=== PATIENT | female | born 1985 | race Two or more races ===

== ENCOUNTER 2017-03-25 00:22 | Emergency (ER) | payer SELFPAY ==
[~2017-03-25] VITALS: Ht 160 cm; Wt 61.2 kg
[2017-03-25] MEDS ORDERED: VANCOMYCIN 1 GM in IV D5W 250 ML IV ONE (00:30)
--- NOTE | 2017-03-25 00:36 | NUR ---
PT TO ER BED 5. PT BIB SELF C/O "SPIDER BITE" TO R ARM X 2 DAYS AGO. NOTED REDNESS/SWELLING TO R ARM. PT PLACED IN GOWN AND ON MEDICAL OFFICE ASST. VSS/RESP EVEN UNLABORED/NAD NOTED/AFEBRILE/SKIN WARM AND DRY/DENIES N-V-D/AOX4. MD AT BEDSIDE FOR EVAL.
--- NOTE | 2017-03-25 00:37 | NUR ---
18G TO L AC X 1 ATTEMPT USING ASEPTIC TECH, BLOOD CULT X 2 AND BLOOD HANDED OVER TO LAB AT THE BEDSIDE. IV FLUSHES EASILY WITH NS, NO S/S INFILTRATION.
[2017-03-25] MEDS ORDERED: VANCOMYCIN 1 GM VIAL ONE (00:44)
--- NOTE | 2017-03-25 00:48 | NUR ---
URINE SPECIMEN OBTAINED AND SENT TO THE LAB.
[2017-03-25 00:51] LABS: BASOPHILS # (AUTO) 0.1 /CMM (0.0-0.2); BASOPHILS % (AUTO) 0.7 % (0.0-2.0); EOSINOPHILS # (AUTO) 0.3 /CMM (0.0-0.7); EOSINOPHILS % (AUTO) 3.2 % (0.0-6.0); HEMATOCRIT 41 % (33-45); HEMOGLOBIN 14.3 g/dL (11.5-14.8); LYMPHOCYTES # (AUTO) 3.4 /CMM (0.8-4.8); LYMPHOCYTES % (AUTO) 42.5 % (20.0-44.0); MEAN CORPUSCULAR HEMOGLOBIN 30 PG (26.0-33.0); MEAN CORPUSCULAR HGB CONC 35 g/dl (31.0-36.0); MEAN CORPUSCULAR VOLUME 88 fL (82-100); MONOCYTES # (AUTO) 0.5 /CMM (0.1-1.30); MONOCYTES % (AUTO) 6.5 % (2.0-12.0); NEUTROPHILS # (AUTO) 3.8 /CMM (1.8-8.9); NEUTROPHILS % (AUTO) 47.1 % (43.0-81.0); PLATELET COUNT (AUTO) 278 /CMM (150-450); RDW COEFFICIENT OF VARIATION 12.5 (11.5-15.0); RED BLOOD CELL COUNT(AUTO) 4.71 MIL/uL (4.0-5.2); WHITE BLOOD COUNT (AUTO) 8.1 K/uL (4.3-11.0)
[2017-03-25 00:55] LABS: APPEARANCE,URINE CLEAR (CLEAR); BILIRUBIN,URINE NEGATIVE (NEGATIVE); BLOOD, URINE NEGATIVE Ery/uL (NEGATIVE); COLOR,URINE STRAW (YELLOW); KETONES,URINE NEGATIVE (NEGATIVE); LEUKOCYTE ESTERASE ,URINE NEGATIVE (NEGATIVE); NITRITE, URINE NEGATIVE (NEGATIVE); PROTEIN,URINE NEGATIVE (NEGATIVE); UGLUCOSE NEGATIVE (NEGATIVE); UROBILINOGEN,URINE 0.2 EU/dL (0.2)
[2017-03-25] MEDS ORDERED: ONDANSETRON HCL/PF 4 MG/2 ML VIAL ONE (01:08)
[2017-03-25 01:10] LABS: CALCIUM, SERUM 8.6 mg/dL (8.5-10.1); CREATININE 0.7 mg/dL (0.6-1.3); POTASSIUM 3.9 mmol/L (3.5-5.1); SALICYLATE 0.6 mg/dL (2.8-20.0)
[2017-03-25] MEDS ORDERED: ONDANSETRON HCL/PF 4 MG/2 ML VIAL IV ONE (01:30)
[2017-03-25] MEDS ORDERED: diphenhydrAMINE HCL 50 MG/ML VIAL ONE (01:40)
--- NOTE | 2017-03-25 01:40 | NUR ---
PT C/O ITCHING, NOTED REDNESS TO FACE AND CHEST. VANCOMYCIN STOPPED. MD MADE AWARE, NEW ORDERS RECEIVED.
--- NOTE | 2017-03-25 01:51 | NUR ---
NO REDNESS NOTED AT THIS TIME, PT NO LONGER ITCHING.
[2017-03-25] MEDS ORDERED: diphenhydrAMINE HCL 50 MG/ML VIAL IV ONE (02:00)
--- NOTE | 2017-03-25 02:41 | NUR ---
PT RESTING QUIETLY, AROUSES TO VOICE. VSS/RESP EVEN UNLABORED.
--- NOTE | 2017-03-25 03:52 | NUR ---
IV removed. Catheter intact and site benign. Pressure and 4x4 applied to site. No bleeding noted. Patient discharged with friend to home in stable condition. Written and verbal after care instructions given, instructed not to drive. Patient verbalizes understanding of instruction. Patient ambulatory with a steady gait.
[2017-03-25 03:53] VITALS: BP 104/62
== END 2017-03-25 03:54 | disposition home or self-care (01) ==
LOC: ER 00:25 → EDBD 00:25 → ER 03:54
DX: L03.113 Cellulitis of right upper limb (principal); F10.129 Alcohol abuse with intoxication, unspecified; F41.9 Anxiety disorder, unspecified
CPT/HCPCS: 36415; 80048; 80305; 80329; 81001; 83605; 85025; 87040 ×2; 96365; 96375; 99284; A4606 ×2; G0480 ×2; J1200; J2405; J3370; Z7610; 81000-TC